=== PATIENT | female | born 1975 | race Caucasian/White ===

== ENCOUNTER 2018-07-17 19:39 | Emergency (ER) | payer MEDICAID, SELFPAY ==
[2018-07-17 19:41] VITALS: BP 145/96; PULSE 99; RESP 20; TEMP 36.2; O2SAT 97; BMI 24.7
--- NOTE | 2018-07-17 20:13 | ED.DEP ---
ED Disposition - Plan for ED Patient: Chief Complaint: Back Instructions: ED Neck Back Pain General Referrals: NOT,DEFINED [Primary Care Provider] -
--- NOTE | 2018-07-17 20:16 | ED.DCSUM_ITS ---
- ER Visit Summary Date of Service: 07/17/18 Chief Complaint: Back pain History of Present Illness: The patient is a 43 F presenting with back pain. This has been ongoing for the past 2 days. 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 She then developed pain in her right lower back radiating to her right leg. She has had no bowel or bladder incontinence. She is able to ambulate with pain. She is currently in pain management for chronic back pain. Denies direct trauma. Denies fever. Denies other complaints. Physical Examination: Vitals are stable. Patient is afebrile. Alert no acute distress. HEENT exam is unremarkable. Neck is supple. Lungs are clear and equal bilaterally. Heart is regular rate and rhythm. Abdomen is soft nontender nondistended. Back: Right paraspinal lumbar muscle tenderness, no midline tenderness. Straight leg raise positive at 30 degrees on the right Extremities are unremarkable. Skin is warm and dry. No focal neurologic deficit. Normal strength and sensation Remainder of exam is unremarkable. Emergency Department Course and Treatment: Patient is given Dilaudid, Zofran IM. She is advised to follow-up with her pain management physician. She is advised to return to ED for worsening complaints. Disposition: Discharge home Impression: Acute on chronic back pain This note was generated with [employer] dictation software. It may contain incorrect words, spelling, and punctuation that were not noted in review of the chart prior to signing ED Disposition - Plan for ED Patient: Chief Complaint: Back Instructions: ED Neck Back Pain General Referrals: NOT,DEFINED [Primary Care Provider] -
[2018-07-17] MEDS: HYDROmorphone 1 MG/ML Syringe 2 MG IM (20:42)
[2018-07-17] MEDS: Ondansetron 4 MG/2 ML Vial IM (20:42)
[2018-07-17 21:10] VITALS: BP 151/74; PULSE 71; RESP 16; O2SAT 97
== END 2018-07-17 21:12 | disposition home or self-care (01) ==
LOC: ED 20:27
PROVIDERS: Emergency Provider Emergency Medicine
DX: M54.5 Low back pain (principal); G89.29 Other chronic pain; K21.9 Gastro-esophageal reflux disease without esophagitis; Z79.899 Other long term (current) drug therapy; Z72.0 Tobacco use
CPT/HCPCS: 96372; 99282; J2405

== ENCOUNTER 2018-09-02 16:19 | Emergency (ER) | payer MEDICAID, SELFPAY ==
[2018-09-02 16:20] VITALS: BP 161/110; PULSE 95; RESP 16; TEMP 36.4; O2SAT 100; BMI 22.4
--- NOTE | 2018-09-02 18:10 | RAD_ITS ---
STUDY: X-RAY - ABDOMEN/PELVIS REASON FOR EXAM: Female, 43 years old. Constipation TECHNIQUE: Supine views of the abdomen and pelvis were obtained. COMPARISON: None. FINDINGS: The lung bases are unremarkable. There is an unremarkable bowel gas pattern. There is no demonstrated free abdominal air. There is no demonstrated abnormality of the major organs. Cholecystectomy clips are present. The soft tissues are unremarkable. There are surgical changes from L4 through S1. RAD/Abdomen Single View IMPRESSION: No acute abnormalities are seen in the abdomen or pelvis. There is no bowel obstruction. There is mild to moderate stool in the colon. Electronically Signed: Mona Hunter MD at 18:30 EST Tel Direct: [phone], Service support ,
--- NOTE | 2018-09-02 18:49 | ED.VISSUMM ---
- ER Visit Summary Date of Service: 09/02/18 Chief Complaint: Constipation History of Present Illness: The patient is a 43 F on chronic narcotic pain meds (morphine) due to chronic back pain. Plan 1 week history of constipation with minimal bowel movements that entire time. States she used 3 enemas yesterday with minimal to no relief. Abdominal discomfort. No fever. Positive nausea and vomiting. Prior appendectomy and cholecystectomy. No prior bowel obstruction. Physical Examination: Vital signs stable and afebrile. HEENT exam unremarkable. Moist his membranes. Patient's no distress. Neck nontender. Lungs clear to auscultation bilaterally. Heart regular rate and rhythm no murmur. Abdomen soft. Symptoms are nondistended normal bowel sounds no peritoneal signs. No signs of obstruction. Abdomen is soft. Vascular intact. Back nontender. Neurologically awake and alert. Test Results: KUB shows increasing stool. No obstruction. No air-fluid levels. Emergency Department Course and Treatment: DC Treatment Plan: Magnesium citrate. Return if unable to have bowel movement. Disposition: dc Impression: Acute constipation This note was generated with [employer] dictation software. It may contain incorrect words, spelling, and punctuation that were not noted in review of the chart prior to signing ED Disposition - Plan for ED Patient: Chief Complaint: Constipation Referrals: Care Physician,No Primary [Primary Care Provider] -
--- NOTE | 2018-09-02 18:53 | ED.DCSUM_ITS ---
- ER Visit Summary Date of Service: 09/02/18 Chief Complaint: Constipation History of Present Illness: The patient is a 43 F on chronic narcotic pain meds (morphine) due to chronic back pain. Plan 1 week history of constipation with minimal bowel movements that entire time. States she used 3 enemas yesterday with minimal to no relief. Abdominal discomfort. No fever. Positive nausea and vomiting. Prior appendectomy and cholecystectomy. No prior bowel obstruction. Physical Examination: Vital signs stable and afebrile. HEENT exam unremarkable. Moist his membranes. Patient's no distress. Neck nontender. Lungs clear to auscultation bilaterally. Heart regular rate and rhythm no murmur. Abdomen soft. Symptoms are nondistended normal bowel sounds no peritoneal signs. No signs of obstruction. Abdomen is soft. Vascular intact. Back nontender. Neurologically awake and alert. Test Results: KUB shows increasing stool. No obstruction. No air-fluid levels. Emergency Department Course and Treatment: DC Treatment Plan: Magnesium citrate. Return if unable to have bowel movement. Disposition: dc Impression: Acute constipation This note was generated with [employer] dictation software. It may contain incorrect words, spelling, and punctuation that were not noted in review of the chart prior to signing ED Disposition - Plan for ED Patient: Chief Complaint: Constipation Referrals: Care Physician,No Primary [Primary Care Provider] -
--- NOTE | 2018-09-02 18:53 | ED.DEP ---
ED Disposition - Plan for ED Patient: Disposition: Home or Assisted Living Chief Complaint: Constipation Instructions: ED Constipation Referrals: Eliu Gil MD [NON-STAFF] - 1-2 Days if not improving Additional Instructions: Plenty of fluids. Plenty of fiber, fruits and vegetables. Drink the entire bottle of magnesium citrate and to have a bowel movement within 2-4 hours.
[2018-09-02] MEDS: Magnesium Citrate 300 ML PO (19:07)
[2018-09-02 19:10] VITALS: PULSE 91; RESP 18
--- NOTE | 2018-09-02 19:11 | ED.RN ---
THIS NURSE REVIEWED D/C INSTRUCTIONS WITH PT. PT VERBALIZED UNDERSTANDING OF INSTRUCTIONS. PT DENIES FURTHER NEEDS OR QUESTIONS AT THIS TIME.
== END 2018-09-02 19:11 | disposition home or self-care (01) ==
PROVIDERS: Emergency Provider Emergency Medicine
DX: K59.00 Constipation, unspecified (principal); R11.2 Nausea with vomiting, unspecified; M54.9 Dorsalgia, unspecified; G89.29 Other chronic pain; K58.9 Irritable bowel syndrome, unspecified; Z90.49 Acquired absence of other specified parts of digestive tract; Z79.891 Long term (current) use of opiate analgesic; Z79.899 Other long term (current) drug therapy; Z72.0 Tobacco use
CPT/HCPCS: 74018; 99282